=== PATIENT | female | born 1955 ===

== ENCOUNTER 2017-03-23 12:28 | Emergency (ER) | payer SELFPAY ==
[2017-03-23 13:29] LABS: BASOPHILS 0.5 % (0.0-2.0); EOSINOPHILS 0.2 % (0.0-6.0); HEMATOCRIT 43.2 % (36.0-48.0); HEMOGLOBIN 14.7 g/dL (12.0-16.0); LYMPHOCYTES 27.5 % (20.0-40.0); LYMPHOCYTES# 1.9 X 10^3uL (0.8-3.8); MEAN CELL VOLUME 89.9 fL (80.0-100.0); MEAN CORPUSCULAR HEMOGLOBIN 30.6 pg (29.0-35.0); MEAN PLATELET VOLUME 7.6 fL (7.4-10.4); MONOCYTES 4.2 % (2.0-10.0); MONOCYTES# 0.3 X 10^3uL (0.2-1.0); NEUTROPHILS 67.6 % (54.0-75.0); NEUTROPHILS# 4.6 X 10^3uL (2.6-6.7); PLATELET COUNT 254 X 10^3uL (130-440); RED CELL DISTRIBUTION WIDTH 11.6 % (11.5-14.5); WHITE BLOOD COUNT 6.8 X 10^3uL (3.9-10.7)
[2017-03-23 13:39] LABS: A/G RATIO 1.4; ALBUMIN 4.7 g/dL (3.5-5.0); ALKALINE PHOSPHATASE 67 U/L (38-126); ALT 34 U/L (9-52); AST 24 U/L (14-36); BILIRUBIN, TOTAL 0.9 mg/dL (0.2-1.3); BLOOD UREA NITROGEN 13 mg/dL (7-17); CALCIUM 10.4 mg/dL (8.4-10.2); CHLORIDE 101 mmol/L (98-107); EST GLOMERULAR FILTRATION RATE > 60 mL/min; GLUCOSE 110 mg/dL (70-100); LIPASE 51 U/L (23-300); POTASSIUM 3.4 mmol/L (3.5-5.1); SODIUM 143 mmol/L (137-145); TOTAL PROTEIN 8.1 g/dL (6.3-8.2)
[2017-03-23 13:40] LABS: C-REACTIVE PROTEIN < 5.0 mg/L (<10.0)
[2017-03-23] MEDS ORDERED: ONDANSETRON HCL 4 MG/2 ML VIAL ONE (13:56)
[2017-03-23] MEDS ORDERED: METOCLOPRAMIDE HCL 10 MG/2 ML VIAL ONE (15:01)
--- NOTE | 2017-03-23 15:30 | CT REPORT ---
HISTORY: Abdominal pain, nausea, and vomiting since this morning. COMPARISON: None. TECHNIQUE: This examination was performed using automated exposure control, adjustment of mA or kV according to patient size, and/or use of iterative reconstruction technique. Axial CT images of the abdomen and pe lvis were obtained without oral or IV contrast. Please note that the lack of IV contrast decreases t he sensitivity of the examination for detection of hepatic, renal, and pancreatic masses. Lack of or al contrast decreases the sensitivity for detection of bowel pathology. FINDINGS: Abdomen: Lung bases: There is minimal bibasilar atelectasis. Liver: Normal. Gallbladder: Normal. Spleen: Normal. Pancreas: Normal. Adrenal glands: Normal. Kidneys: There is no evidence of renal or ureteral calculi. There is no hydronephrosis. Bowel: The unopacified bowel loops are normal in caliber. The appendix is identified and appears unr emarkable. Peritoneum: No free fluid. Retroperitoneum: No adenopathy. Pelvis: Bowel: The unopacified bowel loops are normal in caliber. Bladder: The bladder is incompletely distended, but otherwise appears unremarkable. Uterus: Normal. Peritoneum: No free fluid. Retroperitoneum: No adenopathy. Visualized osseous structures: There is chondrocalcinosis in the pubic symphysis. There are probable tiny bone islands in the left femoral head. There are degenerative changes in the lower lumbar spine . IMPRESSION: 1. No evidence of renal or ureteral calculi. 2. Normal appendix. Final Electronic Signature: This report was electronically signed by Phillip Ragland MD on 03/23/2017 3: 28 PM. da /
--- NOTE | 2017-03-23 16:01 | ER PHYSICIAN DOCUMENTATION ---
Physician Documentation [facility] Name:Malathi Robbins Age:61 yrs Sex:Female :1955 Arrival Date:03/23/2017 Time:12:28 Bed5 Private MD: Pravin Draper Disposition: 03/23/17 13:46 Discharged to Home/Self Care. Impression: Gastroenteritis vs. Food Poisoning. - Condition is Good. - Discharge Instructions: DIARRHEA VOMIT Viral 6yAdult - GASTROENTERITIS, Viral [6y-Adult]. - Prescriptions for Zofran 8 mg Oral - take 1 tablet by ORAL route 3 times per day PRN; 30 tablet. - Medical Reconciliation form form. - Follow up: Private Physician; When: As needed; Reason: Worsening of condition. - Problem is new. - Symptoms have improved. HPI: 03/23 14:22 This 61 yrs old /[place] Female presents to ER via Private Vehicle with be complaints of Abdominal Pain. 14:22 The patient presents with abdominal pain that is diffuse. Onset: The symptoms/episode be began/occurred this morning. The symptoms do not radiate. Associated signs and symptoms: Pertinent positives: nausea. Historical: - Allergies: No known drug Allergies; - Home Meds: 1. Cholesterol Relief oral - PMHx: None; - PSHx: BREAST SURGERY; - Tetanus: > 10 years. - Ebola Screening: : Patient denies travel to an Ebola-affected area in the 21 days before illness onset. No symptoms or risks identified at this time. . - Immunization history: Flu Vaccine >1 year. - Social history: Smoking status: Patient states was never smoker of tobacco. ROS: 14:23 Abdomen/GI: Positive for abdominal pain, nausea, diffusely, Negative for flank pain be or urgency. 14:23 All other systems are negative. Exam: 14:23 Constitutional: This is a well developed, well nourished patient who is awake, alert, be and in mild distress. 14:23 Cardiovascular: Pulses: no pulse deficits are appreciated. 14:23 Respiratory: the patient does not display signs of respiratory distress. 14:23 Respiratory: Exam negative for acute changes. 14:23 Abdomen/GI: Palpation: abdomen is soft and non-tender, in all quadrants. Vital Signs: 12:37 BP 155 / 68 LA Sitting (auto/reg); Pulse 81 LA; Resp 16 S; Temp 98.2(O); Pulse Ox 92% em3 on R/A; Weight 61.23 kg (R); Height 5 ft. 5 in. (165.10 cm) (R); Pain 6/10; 13:52 BP 135 / 59; Pulse 80; Resp 16; Pulse Ox 85% on R/A; Pain 2/10; lc 13:52 Pulse Ox 95% on 2 lpm NC; lc 15:37 BP 134 / 71; Pulse 82; Resp 16; Pulse Ox 99% on 2 lpm NC; Pain 0/10; lc 15:58 BP 130 / 70; Pulse 78; Resp 16; Pulse Ox 92% ; Pain 0/10; lc 12:37 Body Mass Index 22.46 (61.23 kg, 165.10 cm) em3 MDM: 12:36 Patient medically screened. be 14:25 Differential diagnosis: Cholelithiasis, diverticulitis, gastritis. be 17:05 Data reviewed: and as a result, I will discharge patient, administer IV fluids, NS be bolus, prescribe pain medication, Dilaudid, Zofran. 03/23 13:33 Order name: CBC AUTO DIF, MDIF/RMOR IF IND; Complete Time: 13:45 EDMS 03/23 13:36 Interpretation: Normal. be 03/23 13:40 Order name: LACTATE; Complete Time: 13:45 EDMS 03/23 13:44 Interpretation: Normal. be 03/23 13:41 Order name: COMPREHENSIVE METABOLIC PANEL; Complete Time: 13:45 EDMS 03/23 13:45 Interpretation: Normal Except: hyponatremia/hypokalemia. be 03/23 13:41 Order name: LIPASE; Complete Time: 13:45 EDMS 03/23 13:45 Interpretation: Normal. be 03/23 13:41 Order name: C-REACTIVE PROTEIN; Complete Time: 13:45 EDMS 03/23 13:45 Interpretation: Normal. be 03/23 15:31 Order name: CAT SCAN; A[place] [id number]; Complete Time: 15:51 EDMS 03/23 17:06 Interpretation: Normal. be 03/23 13:53 Order name: Oxygen; Complete Time: 13:53 lc Dispensed Medications: 13:07 Drug: NS 0.9% 1000 ml; Route: IV; Rate: bolus; Site: right antecubital; lc 13:42 Drug: Zofran 8 mg; Route: IVP; Infused Over: 2 mins; Site: right forearm; lc 13:53 Follow up: Response: Nausea is decreased lc 13:45 Drug: Dilaudid 1 mg; Route: IVP; Infused Over: 2 mins; Site: right forearm; lc 13:54 Follow up: Response: Pain is decreased lc 14:27 Drug: NS 0.9% 1000 ml; Route: IV; Rate: bolus; Site: right forearm; lc 14:28 Follow up: Rate change bolus; IV Status: Completed infusion; IV Intake: 1000ml lc 15:59 Follow up: IV Status: Completed infusion; IV Intake: 1000ml lc 14:50 Drug: Reglan 5 mg; Route: IVP; Infused Over: 2 mins; Site: right antecubital; lc 15:22 Follow up: Response: Nausea is decreased lc 15:15 Drug: Reglan 5 mg; Route: IVP; Site: right hand; lb 16:00 Follow up: Response: Nausea is decreased lc Point of Care Testing: Urine Dip: 12:55 pH: 6.5; ; Specific [place]: 1.025; Ketones: Negative; Glucose: Negative; Protein: lc Negative; Leukocytes: Negative; Nitrite: Negative ; Blood: Small (+); Bilirubin: Negative ; Urobilinogen: Normal Signatures: Lexi Espinal RN RN lc Elliott, Brian, MD MD be Bollock, Lynda lb
--- NOTE | 2017-03-23 16:01 | ER NURSING DOCUMENTATION ---
Nurse's Notes [facility] Name:Malathi Robbins Age:61 yrs Sex:Female :1955 Arrival Date:03/23/2017 Time:12:28 Bed5 Private MD: Diagnosis:Gastroenteritis vs. Food Poisoning Presentation: 03/23 12:43 Presenting complaint: Patient states: THIS AM C/O LOWER ABD CRAMPING, DENIES DYSURIA. lc NO FEVER. Transition of care: patient was not received from another setting of care. Notified ED Physician of patient's arrival and CC. 12:43 Acuity: ZACHARY 3 lc 12:43 Method Of Arrival: Private Vehicle Triage Assessment: 12:46 General: Appears comfortable, well groomed, Behavior is appropriate for age, lc cooperative. Pain: Complains of pain in right lower quadrant and left lower quadrant Pain At worst was 6 out of 10 on a pain scale. Quality of pain is described as crampy, dull, Pain began 3 hours ago. Neuro: Level of Consciousness is awake, alert, Oriented to person, place, time, event. GI: Abdomen is flat, non- distended Abd is soft and non tender Denies vomiting. : Denies burning with urination, discharge. Derm: Skin is pink, warm & dry. Historical: - Allergies: No known drug Allergies; - Home Meds: 1. Cholesterol Relief oral - PMHx: None; - PSHx: BREAST SURGERY; - Tetanus: > 10 years. - Ebola Screening: : Patient denies travel to an Ebola-affected area in the 21 days before illness onset. No symptoms or risks identified at this time. . - Immunization history: Flu Vaccine >1 year. - Social history: Smoking status: Patient states was never smoker of tobacco. Screenin:48 Infectious Disease Risk None. Abuse screen: Denies threats or abuse. Denies injuries lc from another. Nutritional screening: No deficits noted. Assessment: 12:48 See Triage Assessment done by same RN. GI: Bowel sounds present X 4 quads. lc 14:28 Reassessment: Patient denies pain at this time. Patient appears in no apparent distress lc at this time. C/O NAUSEA AND DIZZY AFTER MEDS. LAYING DOWN NOW, NO EMESIS, 2ND BAD HUNG, FAMILY TO GET RX FILLED. VSS.. 15:36 Reassessment: Patient states feeling better. Patient states symptoms have improved. lc BACK FROM CT, NAUSEA AND PAIN SUBSIDED, VSS.. Vital Signs: 12:37 BP 155 / 68 LA Sitting (auto/reg); Pulse 81 LA; Resp 16 S; Temp 98.2(O); Pulse Ox 92% em3 on R/A; Weight 61.23 kg (R); Height 5 ft. 5 in. (165.10 cm) (R); Pain 6/10; 13:52 BP 135 / 59; Pulse 80; Resp 16; Pulse Ox 85% on R/A; Pain 2/10; lc 13:52 Pulse Ox 95% on 2 lpm NC; lc 15:37 BP 134 / 71; Pulse 82; Resp 16; Pulse Ox 99% on 2 lpm NC; Pain 0/10; lc 15:58 BP 130 / 70; Pulse 78; Resp 16; Pulse Ox 92% ; Pain 0/10; lc 12:37 Body Mass Index 22.46 (61.23 kg, 165.10 cm) em3 ED Course: 12:29 Patient arrived in ED. em3 12:36 Pravin Hernandez MD is Attending Physician. be 12:40 Valuables Remains with patient Patient has correct armband on for positive em3 identification. Placed in gown. Bed in low position. Call light in reach. Side rails up X 1. 12:43 Lexi Espinal, RN is Primary Nurse. lc 12:45 Triage completed. lc 13:08 Labs drawn. By heavy equipment diesel mechanic Sent per order to lab. Inserted saline lock: 20 gauge in right em3 forearm and blood collected. 13:53 Pulse Ox - RN Monitoring Only NIBP On - RN Monitoring Only. lc 13:53 Oxygen Oxygen administration via nasal cannula @ 2L/min. lc 15:[address] mr 15:16 Patient [address] back from [address]. pm1 Administered Medications: 13:07 Drug: NS 0.9% 1000 ml; Route: IV; Rate: bolus; Site: right antecubital; lc 13:42 Drug: Zofran 8 mg; Route: IVP; Infused Over: 2 mins; Site: right forearm; lc 13:53 Follow up: Response: Nausea is decreased lc 13:45 Drug: Dilaudid 1 mg; Route: IVP; Infused Over: 2 mins; Site: right forearm; lc 13:54 Follow up: Response: Pain is decreased lc 14:27 Drug: NS 0.9% 1000 ml; Route: IV; Rate: bolus; Site: right forearm; lc 14:28 Follow up: Rate change bolus; IV Status: Completed infusion; IV Intake: 1000ml lc 15:59 Follow up: IV Status: Completed infusion; IV Intake: 1000ml lc 14:50 Drug: Reglan 5 mg; Route: IVP; Infused Over: 2 mins; Site: right antecubital; lc 15:22 Follow up: Response: Nausea is decreased lc 15:15 Drug: Reglan 5 mg; Route: IVP; Site: right hand; lb 16:00 Follow up: Response: Nausea is decreased lc Point of Care Testing: Urine Dip: 12:55 pH: 6.5; ; Specific [place]: 1.025; Ketones: Negative; Glucose: Negative; Protein: lc Negative; Leukocytes: Negative; Nitrite: Negative ; Blood: Small (+); Bilirubin: Negative ; Urobilinogen: Normal Intake: 14:28 IV: 1000ml; Total: 1000ml. lc 15:59 IV: 1000ml; Total: 2000ml. Outcome: 13:46 Discharge ordered by . be 15:58 Discharged to home via wheelchair, with family. 15:58 Condition: stable 15:58 Discharge Assessment: Patient awake, alert and oriented x 3. No cognitive and/or functional deficits noted. Patient verbalized understanding of disposition instructions. 15:58 Discharge instructions given to patient, family, Instructed on discharge instructions, follow up and referral plans. medication usage, Demonstrated understanding of instructions, medications, Prescriptions given X 1. 15:58 IV D/Yousif 16:00 Patient left the ED. 03/24 09:30 Discharge F/U Call: Unable to reach: no answer rh Signatures: Lexi Espinal, NISHA RN lc Pravin Hernandez MD MD be Paxton Farah pm1 Marcos Esqueda em3 Sabine Cornejo Patricia Arreola Michael mr
== END 2017-03-23 16:01 | disposition home or self-care (01) ==
LOC: ER 12:28
DX: R10.84 Generalized abdominal pain (principal); R11.0 Nausea; E87.1 Hypo-osmolality and hyponatremia; E87.6 Hypokalemia
CPT/HCPCS: 74176; 80053; 83605; 83690; 85025; 86140; 96361; 96374; 96375; 99283; 99285; J1170; J2405; J2765